=== PATIENT | male | born 1960 | race Caucasian/White ===

== ENCOUNTER → 2024-04-23 | Outpatient (CLI) | payer OTHER ==
--- NOTE | 2024-04-25 17:33 | US ---
EXAMINATION TYPE: US liver DATE OF EXAM: 04/23/2024 COMPARISON: NONE CLINICAL INDICATION: Male, 64 years old with history of K74.60 CIRRHOSIS OF LIVER; Cirrhosis TECHNIQUE: Multiple sonographic images of the right upper quadrant are obtained. 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 Lobulated heterogenous appearance of the liver with surf eriberto nodularity. This appearance limits evaluation for small hepatic masses. No gross evidence of mass . Cholelithiasis is demonstrated. No surrounding fluid or wall thickening. Negative sonographic Darius y's sign. Common bile duct is within normal limits. Right kidney demonstrate no hydronephrosis, nephr olithiasis, or solid mass. Trace perihepatic ascites demonstrated. IMPRESSION: 1. Hepatic cirrhosis with trace perihepatic ascites. 2. Cholelithiasis without ultrasound evidence for acute cause ascites.
== END | disposition home or self-care (01) ==
LOC: RADUSWWP 07:14
PROVIDERS: ATTEND Internal Medicine Gastroenterology
DX: K74.60 Unspecified cirrhosis of liver (principal); K80.20 Calculus of gallbladder without cholecystitis without obstruction; R18.8 Other ascites
CPT/HCPCS: 76705

== ENCOUNTER → 2024-04-27 | Day surgery (SDC) | payer OTHER ==
[~2024-04-27] MED LIST: PROPOFOL 10 MG/ML 20 ML VIAL IV ONE
[2024-04-27] MEDS: IV FLUID CONTINUATION 1,000 ML IV ONE (11:24)
[2024-04-27 11:26] VITALS: TEMP 98.9
[2024-04-27 11:34] LABS: Glucose,Whole Blood 123 mg/dL (70-110)
[2024-04-27] MEDS: LACTATED RINGERS 1,000 ML IV SCH (11:38)
--- NOTE | 2024-04-27 12:27 | P.PCN ---
Date of Procedure: 04/27/24 Procedure(s) Performed: BRIEF HISTORY: Patient is a 64-year-old, pleasant, white female scheduled for an upper endoscopy as a part of evaluation of history of liver cirrhosis and screening for esophageal varices. PROCEDURE PERFORMED: Esophagogastroduodenoscopy biopsy. PREOPERATIVE DIAGNOSIS: History of liver cirrhosis/screening for esophageal varices. IV sedation per anesthesia. PROCEDURE: After informed consent was obtained, the patient was brought into the endoscopy unit. IV sedation was administered by Anesthesia under continuous monitoring. Initially the Olympus GIF-140 video endoscope was inserted into the mouth. Esophagus intubated without any difficulty. It was gradually advanced into the stomach and duodenum and carefully examined. The bulb and the second part of the duodenum appeared normal. The scope at this time was withdrawn to the stomach, adequately insufflated with air, and upon careful examination, mucosa of the antrum, body had gastritis and biopsies were done from this area. Mucosa in the, cardia and the fundus appeared normal. The scope was then withdrawn into the esophagus. Gastric varices identified. The GE junction was located at 39 cm from the incisors. There may large mid and distal esophageal varices seen but no grade B remarks identified. The rest of the esophagus appeared normal. There were no erosions or ulcerations seen and the patient tolerated the procedure well. IMPRESSION: 1. Large mid and distal esophageal varices. 2. No gastric varices 3. Mild antral gastritis and mild portal hypertensive gastropathy. RECOMMENDATIONS: The findings of this examination were discussed with the patient as well as his family. He was advised to follow with the biopsy results. He will be started on propranolol 10 mg 3 times daily as a part of primary prevention of recent bleeding. Follow-up in the office in 2 weeks
[2024-04-27 12:48] VITALS: BP 136/74; PULSE 66; RESP 16
[2024-04-27 12:53] LABS: Glucose,Whole Blood 104 mg/dL (70-110)
== END ==
LOC: ORWHC2ENDO 10:05
PROVIDERS: ATTEND Internal Medicine Gastroenterology
DX: K29.50 Unspecified chronic gastritis without bleeding (principal); K74.60 Unspecified cirrhosis of liver; K31.89 Other diseases of stomach and duodenum; K76.6 Portal hypertension; I85.10 Secondary esophageal varices without bleeding; I10 Essential (primary) hypertension; E11.9 Type 2 diabetes mellitus without complications; E07.9 Disorder of thyroid, unspecified; F17.200 Nicotine dependence, unspecified, uncomplicated; Z79.890 Hormone replacement therapy; Z79.899 Other long term (current) drug therapy
CPT/HCPCS: 88305; 43239; J2704

== ENCOUNTER → 2024-08-13 | Outpatient (CLI) | payer OTHER ==
--- NOTE | 2024-08-13 10:12 | CT ---
EXAMINATION TYPE: CT left knee - [facility] Protocol CT DLP: 615 mGycm, Automated exposure control for dose reduction was used. DATE OF EXAM: 08/13/2024 9:02 AM COMPARISON: None CLINICAL INDICATION: Male, 64 years old with history of M17.12 OSTEOARTHRITIS LEFT KNEE; [facility], Osteoar thritis LT knee, [facility] protocol. TECHNIQUE: Axial images were obtained of the CT left knee - [facility] Protocol, Additional coronal and sag ittal reformatted images and soft tissue and bone window were obtained for review. . Contrast used: mL of , (None if empty) Oral contrast used: (None if empty) FINDINGS: TThe visualized portion of the hips demonstrate mild osteoarthrosis changes with osteophyte formation of the acetabulum. No acute intrapelvic process. The bony structures of the pelvis are int act. The visualized knee demonstrates osteophyte formation of the tibial plateau, the patella and femoral condyles. There is joint space narrowing and subchondral sclerosis and subchondral cystic change. Fi ndings worse in the medial joint compartment. No evidence of fracture. The right knee also demonstrat es moderate degeneration changes of the medial knee visualized. Visualized ankle demonstrates multifocal osteoarthrosis changes with osteophyte formation and mild red int space narrowing. No evidence of fractures. Atherosclerosis of the arterial vasculature. Trace free fluid in the pelvis. IMPRESSION: 1. End-stage osteoarthrosis changes of the knee. 2. Trace free fluid in the pelvis of unknown etiology. [facility], , 08/13/2024 10:10 AM
== END | disposition home or self-care (01) ==
LOC: RADCTMAIN 07:32
PROVIDERS: ATTEND Orthopaedic Surgery
DX: M17.12 Unilateral primary osteoarthritis, left knee (principal)

== ENCOUNTER → 2024-08-13 | Outpatient (CLI) | payer OTHER ==
[2024-08-17 06:29] LABS: Anabasine Urine <2.0 ng/mL (<2.0)
== END | disposition home or self-care (01) ==
LOC: LABWHC1 09:00
PROVIDERS: ATTEND Orthopaedic Surgery
DX: M17.12 Unilateral primary osteoarthritis, left knee (principal); M25.562 Pain in left knee
CPT/HCPCS: 80323

== ENCOUNTER → 2024-08-13 | Outpatient (CLI) | payer OTHER ==
--- NOTE | 2024-08-13 19:35 | US ---
EXAMINATION TYPE: US liver DATE OF EXAM: 08/13/2024 COMPARISON: US 2023 CLINICAL INDICATION: Male, 64 years old with history of K74.60 UNSPECIFIED CIRRHOSIS OF LIVER; TECHNIQUE: Grayscale and color Doppler imaging of the right upper quadrant was performed. FINDINGS: EXAM MEASUREMENTS: Liver Length: 14.8 cm Gallbladder Wall: 0.2 cm. CBD: 0.4 cm Right Kidney: 12.1 x 5.7 x 7.2 cm Pancreas: visualized portions wnl, limited by overlying midline bowel gas Liver: small, lobulated contour, heterogeneous Gallbladder: multiple mobile stones Evidence for sonographic Almanza's sign: no CBD: wnl Right Kidney: wnl RUQ small amount of ascites IMPRESSION: 1. Minimal free fluid right upper quadrant. 2. Cholelithiasis. Appears to be some borderline thickening of the gallbladder wall. [facility], Workstation: [id number], 08/13/2024 7:33 PM
== END | disposition home or self-care (01) ==
LOC: RADUSWWP 08:21
PROVIDERS: ATTEND Internal Medicine Gastroenterology
DX: K74.60 Unspecified cirrhosis of liver
CPT/HCPCS: 76705

== ENCOUNTER → 2024-09-01 | Outpatient (CLI) | payer OTHER ==
[2024-09-01 13:32] LABS: HCT 37.5 % (39.0-53.0); HGB 12.8 gm/dL (13.0-17.5); INR 1.1 (<1.2); MCH 35.4 pg (25.0-35.0); MCHC 34.1 g/dL (31.0-37.0); MCV 103.8 fL (80.0-100.0); Macrocytosis Slight; Mean Platelet Volume 9.2; Partial Thromboplastin Time 24.4 sec (22.0-30.0); RBC 3.61 m/uL (4.30-5.90); RDW 14.3 % (11.5-15.5); WBC 3.5 k/uL (3.8-10.6)
[2024-09-01 13:43] LABS: ALT 36 U/L (4-49); AST 57 U/L (17-59); African American GFR (CKD) >90 (>60 ml/min/1.73 sqM); Albumin 2.9 g/dL (3.5-5.0); Alkaline Phosphatase 334 U/L (38-126); Anion Gap 3 mmol/L; Blood Urea Nitrogen 10 mg/dL (9-20); Calcium 8.5 mg/dL (8.4-10.2); Carbon Dioxide 25 mmol/L (22-30); Chloride 110 mmol/L (98-107); Glucose 306 mg/dL (74-99); Non-African American GFR(CKD) >90 (>60 ml/min/1.73 sqM); Potassium 4.7 mmol/L (3.5-5.1); Sodium 138 mmol/L (137-145); Total Bilirubin 2.1 mg/dL (0.2-1.3); Total Protein 6.4 g/dL (6.3-8.2)
[2024-09-01 15:08] LABS: Platelet Count 89 k/uL (150-450)
[2024-09-04 15:55] LABS: Anabasine Urine 4.3 ng/mL (<2.0)
== END | disposition home or self-care (01) ==
LOC: PAT 12:19
PROVIDERS: ATTEND Orthopaedic Surgery
DX: Z00.00 Encounter for general adult medical examination without abnormal findings
CPT/HCPCS: 80053; 80323; 83036; 85027; 85610; 85730; 87070

== ENCOUNTER → 2024-10-22 | Outpatient (CLI) | payer OTHER ==
[2024-10-22 11:02] LABS: Partial Thromboplastin Time 22.7 sec (22.0-30.0); Prothrombin Time 11.3 sec (10.0-12.5)
[2024-10-22 15:12] LABS: ALT 50 U/L (10-49); AST 75 U/L (14-35); Albumin/Globulin Ratio 0.86 Ratio (1.60-3.17); Alkaline Phosphatase 324 U/L (41-126); Blood Urea Nitrogen 10.1 mg/dL (9.0-27.0); Calcium 8.6 mg/dL (8.7-10.3); Carbon Dioxide 27.5 mmol/L (21.6-31.8); Chloride 105 mmol/L (96-109); Globulin 3.5 g/dL (1.6-3.3); Glucose 149 mg/dL (70-110); Potassium 4.5 mmol/L (3.5-5.5); Sodium 140 mmol/L (135-145); Total Bilirubin 1.3 mg/dL (0.3-1.2); Total Protein 6.5 g/dL (6.2-8.2)
[2024-10-22 17:09] LABS: HCT 39.5 % (39.6-50.0); HGB 13.6 g/dL (13.0-17.0); MCH 34.3 pg (27.0-32.0); MCHC 34.4 g/dL (32.0-37.0); MCV 99.5 FL (80.0-97.0); Mean Platelet Volume 11.8 FL (9.5-12.2); NRBC Per 100 WBC 0 X 10*3/uL (0.00-0.01); Platelet Count 82 X 10*3/uL (140-440); RBC 3.97 X 10*6/uL (4.40-5.60); RDW 13.4 % (11.5-14.5); WBC 4.03 X 10*3/uL (4.50-10.00)
== END | disposition home or self-care (01) ==
LOC: LABPAT 09:28
PROVIDERS: ATTEND Orthopaedic Surgery
DX: Z01.812 Encounter for preprocedural laboratory examination (principal); Z22.322 Carrier or suspected carrier of Methicillin resistant Staphylococcus aureus
CPT/HCPCS: 80053; 83036; 85027; 85610; 85730; 87070

== ENCOUNTER → 2024-11-08 | Day surgery (SDC) | payer OTHER | LOC: OR 10:14 | PROVIDERS: ATTEND Orthopaedic Surgery | DX: Z53.9 Procedure and treatment not carried out, unspecified reason (principal) ==

== ENCOUNTER → 2025-01-11 | Outpatient (CLI) | payer OTHER ==
--- NOTE | 2025-01-11 12:54 | CT ---
EXAMINATION TYPE: CT left knee - [facility] Protocol DATE OF EXAM: 01/11/2025 12:44 PM COMPARISON: 08/13/2024. CLINICAL INDICATION: Male, 64 years old with history of M17.12 OSTEOARTHRITIS KNEE; PHH, left knee ma ko protocol, pain, TECHNIQUE: Axial images were obtained of the bilateral hips, knee and bilateral ankles: CT left knee - [facility] Protocol, Additional coronal and sagittal reformatted images and soft tissue and bone window were obtained for review of the bilateral hips, knee and bilateral ankles. Contrast used: mL of , (None if empty) Oral contrast used: (None if empty) CT DLP: 410 mGycm, Automated exposure control for dose reduction was used. FINDINGS: The visualized portion of the hips demonstrate mild osteoarthrosis changes with osteophyte formation of the acetabulum. No acute intrapelvic process. The bony structures of the pelvis are intact. The visualized knee demonstrates osteophyte formation of the tibial plateau, the patella and femoral condyles. There is complete loss of joint space subchondral sclerosis, subchondral cystic change and early deformity to the osseous structures. And subchondral sclerosis. No evidence of fracture. The visualized ankles demonstrates multifocal osteoarthrosis changes with osteophyte formation and mi ld joint space narrowing. No evidence of fractures. Other: Small amount of ascites. Sequential wall thickening of the urinary bladder. gross desiccation in the prostate gland. Scattered colonic diverticula. Severe atherosclerosis of the arterial vascular . IMPRESSION: Redemonstration of End-stage/severe osteoarthrosis changes of the knee. [facility], , 01/11/2025 12:51 PM
== END | disposition home or self-care (01) ==
LOC: RADCTMAIN 10:35
PROVIDERS: ATTEND Orthopaedic Surgery
DX: M17.12 Unilateral primary osteoarthritis, left knee (principal)

== ENCOUNTER → 2025-01-19 | Outpatient (CLI) | payer OTHER ==
[2025-01-19 12:32] LABS: INR 1.1 (<1.2); Prothrombin Time 11.7 sec (10.0-12.5)
[2025-01-19 15:00] LABS: ALT 46 U/L (10-49); AST 74 U/L (14-35); Albumin/Globulin Ratio 0.71 Ratio (1.60-3.17); Alkaline Phosphatase 356 U/L (41-126); BUN/Creat Ratio 20.83 Ratio (12.00-20.00); Blood Urea Nitrogen 12.5 mg/dL (9.0-27.0); Calcium 8.6 mg/dL (8.7-10.3); Carbon Dioxide 25.6 mmol/L (21.6-31.8); Chloride 103 mmol/L (96-109); Globulin 4.2 g/dL (1.6-3.3); Glucose 494 mg/dL (70-110); Potassium 3.8 mmol/L (3.5-5.5); Sodium 136 mmol/L (135-145); Total Bilirubin 1.1 mg/dL (0.3-1.2); Total Protein 7.2 g/dL (6.2-8.2)
[2025-01-19 15:19] LABS: HCT 37.8 % (39.6-50.0); HGB 13.1 g/dL (13.0-17.0); MCH 33.8 pg (27.0-32.0); MCHC 34.7 g/dL (32.0-37.0); MCV 97.4 FL (80.0-97.0); Mean Platelet Volume 11.8 FL (9.5-12.2); NRBC Per 100 WBC 0 X 10*3/uL (0.00-0.01); Platelet Count 96 X 10*3/uL (140-440); RBC 3.88 X 10*6/uL (4.40-5.60); RDW 12.6 % (11.5-14.5); WBC 3.82 X 10*3/uL (4.50-10.00)
== END | disposition home or self-care (01) ==
LOC: LABPAT 11:11
PROVIDERS: ATTEND Orthopaedic Surgery
DX: Z01.818 Encounter for other preprocedural examination (principal); Z22.322 Carrier or suspected carrier of Methicillin resistant Staphylococcus aureus; M17.12 Unilateral primary osteoarthritis, left knee; E11.9 Type 2 diabetes mellitus without complications
CPT/HCPCS: 80053; 83036; 85027; 85610; 85730; 87070; 93005

== ENCOUNTER 2025-01-28 10:11 | Emergency (ER) | payer OTHER ==
--- NOTE | 2025-01-28 10:48 | ED ---
Extremity Problem HPI - General Source: patient, RN notes reviewed Mode of arrival: wheelchair Limitations: no limitations <Ame Tatum - Last Filed: 01/28/25 10:47> - General Source: patient, RN notes reviewed Mode of arrival: wheelchair Limitations: no limitations <Nivia Colon - Last Filed: 01/29/25 14:59> - General Chief complaint: Extremity Problem,Nontraumatic Stated complaint: L knee pain Time Seen by Provider: 01/28/25 10:30 - History of Present Illness Initial comments: Quick [id number] male presenting with a left knee pain. Patient was scheduled for a total knee replacement this month however this has been deferred as patient's A1c level is elevated. Patient is presenting for pain management. (Ame Tatum) 65-year-old male presented to the ER for evaluation of left knee pain. Patient states this has been a chronic issue and he was scheduled for a left total knee arthroplasty with Dr. Zepeda this month. Surgery was postponed given elevated A1c level, patient reports it was 9. Patient states he is following up with PCP for diabetes management and has medication adjustments since surgery deferment. Patient reports over the past couple days he has had an increase in pain to his left knee which has been "giving out on him". He has not taken anything [id number] for his pain at this time. He denies any new injuries or traumas. No paresthesias to left lower extremity. Patient has no other complaints at this time. (Nivia Colon) - Related Data Home Medications Medication Instructions Recorded Confirmed Insulin Glargine (Lantus) [Lantus 40 unit SQ BID 04/22/24 04/27/24 Vial] Levothyroxine Sodium [Synthroid] 100 mcg PO DAILY 04/22/24 04/27/24 glipiZIDE [glipiZIDE ER] 2.5 mg PO DAILY 04/22/24 04/27/24 lisinopriL [Zestril] 5 mg PO DAILY 04/22/24 04/27/24 Previous Rx's Medication Instructions Recorded Ibuprofen [Motrin] 800 mg PO Q6HR #30 tab 01/28/25 Allergies Allergy/AdvReac Type Severity Reaction Status Date / Time codeine AdvReac Nausea Verified 01/28/25 10:15 metals AdvReac Rash/Hives Uncoded 01/28/25 10:15 Review of Systems ROS Other: All systems not noted in ROS Statement are negative. <Ame Tatum - Last Filed: 01/28/25 10:47> ROS Other: All systems not noted in ROS Statement are negative. <Nivia Colon - Last Filed: 01/29/25 14:59> ROS Statement: Those systems with pertinent positive or pertinent negative responses have been documented in the HPI. Past Medical History Past Medical History: Diabetes Mellitus, GERD/Reflux, Liver Disease, Osteoarthritis (OA), Thyroid Disorder Additional Past Medical History / Comment(s): hx. Hep. C-received treatment, hx. ulcers History of Any Multi-Drug Resistant Organisms: None Reported Past Surgical History: Orthopedic Surgery Additional Past Surgical History / Comment(s): arthroscopy left knee Past Anesthesia/Blood Transfusion Reactions: No Reported Reaction Past Psychological History: No Psychological Hx Reported Smoking Status: Current every day smoker Past Alcohol Use History: None Reported Past Drug Use History: None Reported <Ame Tatum - Last Filed: 01/28/25 10:47> General Exam Limitations: no limitations <Ame Tatum - Last Filed: 01/28/25 10:47> - General Exam Comments Initial Comments: Visual Physical Exam Vital signs reviewed General: Well-appearing, nontoxic, no acute distress. Head: Normocephalic, atraumatic Eyes: PERRLA, EOMI ENT: Airway patent Chest: Nonlabored breathing Skin: No visual rash, normal skin tone Neuro: Alert and oriented 3 Musculoskeletal: No gross abnormalities (Ame Tatum) Course Vital Signs 01/28/25 01/28/25 10:13 13:42 Temperature 98 F Pulse Rate 67 78 Respiratory 18 20 Rate Blood Pressure 106/59 190/87 O2 Sat by Pulse 99 98 Oximetry Medical Decision Making <Ame Tatum - Last Filed: 01/28/25 10:47> <Nivia Colon - Last Filed: 01/29/25 14:59> - Medical Decision Making I completed the quick note portion of this chart signed Ame Tatum PA-C (Ame Tatum) Was pt. sent in by a medical professional or institution ([facility], [facility], urgent care, hospital, or skilled nursing...) When possible be specific @ -No Did you speak to anyone other than the patient for history (EMS, parent, family, police, friend...)? What history was obtained from this source @ -No Did you review nursing and triage notes (agree or disagree)? Why? @ -I reviewed and agree with nursing and triage notes Were old charts reviewed (outside hosp., previous admission, EMS record, old EKG, old radiological studies, urgent care reports/EKG's, skilled nursing records)? Report findings @ -No old charts were reviewed Differential Diagnosis (chest pain, altered mental status, abdominal pain women, abdominal pain men, vaginal bleeding, weakness, fever, dyspnea, syncope, headache, dizziness, GI bleed, back pain, seizure, CVA, palpatations, mental health, musculoskeletal)? @ -Differential Musculoskeletal: Muscular strain, contusion, ligament sprain, fracture, arthritis, septic arthritis, bursitis, cellulitis, muscle spasm, nerve compression, DVT, arterial occlusion, herpes zoster, electrolyte abnormality, tumor.... This is not meant to be in all inclusive list EKG interpreted by me (3pts min.). @ -None done X-rays interpreted by me (1pt min.). @ -None done CT interpreted by me (1pt min.). @ -None done U/S interpreted by me (1pt. min.). @ -None done What testing was considered but not performed or refused? (CT, X-rays, U/S, labs)? Why? @ -Imaging considered but deferred at this time as patient had recent CT scan on 01-12-2024 showing severe osteoarthritis. Patient denied any new injuries or traumas. Patient agreeable. What meds were considered but not given or refused? Why? @ -None Did you discuss the management of the patient with other professionals (professionals i.e. Dr., PA, [facility], lab, RT, psych nurse, social services aide, demand generator manager, teacher, water resources technical officer, block and case maker)? Give summary @ -No Was smoking cessation discussed for >3mins.? @ -No Was critical care preformed (if so, how long)? @ -No Were there social determinants of health that impacted care today? How? (Homelessness, low income, unemployed, alcoholism, drug addiction, tr ansportation, low edu. Level, literacy, decrease access to med. care, detention, rehab)? @ -No Was there de-escalation of care discussed even if they declined (Discuss DNR or withdrawal of care, Hospice)? DNR status @ -No What co-morbidities impacted this encounter? (DM, HTN, Smoking, COPD, CAD, Cancer, CVA, ARF, Chemo, Hep., AIDS, mental health diagnosis, sleep apnea, morbid obesity)? @ -None Was patient admitted / discharged? Hospital course, mention meds given and route, prescriptions, significant lab abnormalities, going to OR and other pertinent info. @ -Discharge. 65-year-old male presented the ER for evaluation of left knee pain. Upon rooming, history and physical exam completed. Vitals with acceptable limits. Patient is neurovascularly intact. Patient has limited flexion of left knee given pain.. There is focal tenderness to medial joint line. Imaging deferred at this time as patient denying any new injuries and had recent CT scan showing severe osteoarthritis. Patient given pain control with ibuprofen and Tylenol, with improvement. Upon reevaluation, patient sleeping in exam room no signs of acute distress. Results discussed with patient, all questions answered. I advised close follow-up with orthopedics. Return parameters discussed. I advised outpatient ibuprofen and Tylenol. Patient discharged stable condition. Patient verbally expressed understanding agree with care plan. Case discussed with ED attending, Dr. Thornton. Undiagnosed new problem with uncertain prognosis? @ -No Drug Therapy requiring intensive monitoring for toxicity (Heparin, Nitro, In sulin, Cardizem)? @ -No Were any procedures done? @ -No Diagnosis/symptom? @ -Knee pain Acute, or Chronic, or Acute on Chronic? @ -Chronic Uncomplicated (without systemic symptoms) or Complicated (systemic symptoms)? @ -Uncomplicated Side effects of treatment? @ -No Exacerbation, Progression, or Severe Exacerbation? @ -No Poses a threat to life or bodily function? How? (Chest pain, [place], [place], pneumonia, PE, COPD, DKA, ARF, appy, cholecystitis, CVA, Diverticulitis, Homicidal, Suicidal, threat to staff... and all critical care pts) @ -No (Nivia Colon) Disposition <Ame Tatum - Last Filed: 01/28/25 10:47> Is patient prescribed a controlled substance at d/c from ED?: No Time of Disposition: 12:44 <JoelruiznikolaiNivia - Last Filed: 01/29/25 14:59> Clinical Impression: Knee pain, chronic Disposition: HOME SELF-CARE Condition: Stable Instructions (If sedation given, give patient instructions): Knee Pain (ED) Additional Instructions: Follow-up with orthopedics. You may take [id number] ibuprofen and Tylenol for pain control. Return to the ER for any new or worsening concerns. Prescriptions: Ibuprofen [Motrin] 800 mg PO Q6HR #30 tab Referrals: John Castelan MD [Primary Care Provider] - 1-2 days Jero Zepeda MD [Medical Doctor] - 1-2 days
[2025-01-28 11:08] VITALS: TEMP 98
[2025-01-28] MEDS: IBUPROFEN 800 MG TAB PO STA (11:51)
[2025-01-28] MEDS: ACETAMINOPHEN TAB 325 MG TAB PO STA (13:39)
[2025-01-28 13:44] VITALS: BP 190/87; PULSE 78; RESP 20
== END 2025-01-28 13:45 | disposition home or self-care (01) ==
LOC: EC 10:11
DX: G89.29 Other chronic pain (principal); M25.562 Pain in left knee; F17.200 Nicotine dependence, unspecified, uncomplicated; Z88.5 Allergy status to narcotic agent; Z88.8 Allergy status to other drugs, medicaments and biological substances
CPT/HCPCS: 99283

== ENCOUNTER 2025-02-22 17:53 | Inpatient (IN) | payer OTHER ==
[2025-02-22 18:48] LABS: Glucose,Whole Blood 367 mg/dL (70-110)
[2025-02-22 19:38] LABS: Basophils # (A) 0.03 10*3/uL (0.00-0.10); Basophils % (A) 0.7 %; Eosinophils # (A) 0.05 10*3/uL (0.04-0.35); Eosinophils % (A) 1.2 %; HCT 33.5 % (39.6-50.0); HGB 11.9 g/dL (13.0-17.0); Lymphocytes # (A) 0.62 10*3/uL (0.90-5.00); Lymphocytes % (A) 14.3 %; MCHC 35.5 g/dL (32.0-37.0); MCV 98.5 fL (80.0-97.0); Mean Platelet Volume 10.9 fL (9.5-12.2); Monocytes # (A) 0.47 10*3/uL (0.20-1.00); Monocytes % (A) 10.8 %; Neutrophils # (A) 3.15 10*3/uL (1.80-7.70); Neutrophils % (A) 72.5 %; Platelet Count 100 10*3/uL (140-440); RDW 13.9 % (11.5-14.5); WBC 4.34 10*3/uL (4.50-10.00)
[2025-02-22 19:55] LABS: INR 0.9 (<1.2); Prothrombin Time 10.5 sec (10.0-12.5)
[2025-02-22 20:01] LABS: ALT 49 U/L (4-49); African American GFR (CKD) >90 (>60 ml/min/1.73 sqM); Albumin 3.1 g/dL (3.5-5.0); Anion Gap 9 mmol/L; Blood Urea Nitrogen 20 mg/dL (9-20); Calcium 8.1 mg/dL (8.4-10.2); Carbon Dioxide 20 mmol/L (22-30); Chloride 112 mmol/L (98-107); Glucose 396 mg/dL (74-99); Lipase 78 U/L (23-300); Magnesium 1.9 mg/dL (1.6-2.3); Non-African American GFR(CKD) >90 (>60 ml/min/1.73 sqM); Phosphorus 3.8 mg/dL (2.5-4.5); Sodium 141 mmol/L (137-145)
[2025-02-22 20:11] LABS: AST 84 U/L (17-59); Alcohol 183 mg/dL; Alkaline Phosphatase 326 U/L (38-126); Potassium 4.6 mmol/L (3.5-5.1); Total Bilirubin 1.5 mg/dL (0.2-1.3)
[2025-02-22] MEDS: SODIUM CHLORIDE 0.9% 1,000 ML IV STA (20:14)
[2025-02-22] MEDS: FOLIC ACID 1 MG TAB PO STA (20:19)
[2025-02-22] MEDS: MULTIVITAMINS, THERA 1 EACH TAB PO STA (20:19)
[2025-02-22] MEDS: THIAMINE 100 MG/ML 2 ML VIAL IM STA (20:19)
--- NOTE | 2025-02-22 21:17 | CT ---
EXAMINATION TYPE: CT brain cspine wo con DATE OF EXAM: 02/22/2025 9:06 PM COMPARISON: None available. CLINICAL INDICATION: Male, 65 years old with history of fall, intoxicated, hit right side of head; Fa ll, ETOH, hit right side of head. TECHNIQUE: Brain: Multiple axial CT images of the brain were obtained without IV contrast. Cspine: Axial CT images from the skull base to the inferior aspect of T2 we obtained without intraven ous contrast. Coronal and sagittal reformatted images were also reviewed. . CT DLP: 1401.9 mGycm, Automated exposure control for dose reduction was used. FINDINGS: Brain: Extra-axial spaces: No abnormal extra-axial fluid collections. Ventricular system: Dilatation in proportion to cerebral atrophy. Cerebral parenchyma: No acute intraparenchymal hemorrhage or mass effect. The card-white junction is well differentiated. Scattered hypoattenuating areas are seen within the white matter. Cerebellum: Unremarkable. Mass effect: No evidence of midline shift. Intracranial vasculature: unremarkable Soft tissues: Normal. Calvarium/osseous structures: No depressed skull fracture. Paranasal sinuses and mastoid air cells: There is complete opacification of the left maxillary sinus with air fluid levels. Scattered ethmoid air cell because of thickening also noted. Visualized orbits: Orbital contents are intact. Cervical spine: Fracture: None. Osseous structures: Multilevel anterior osteophyte formation and intervertebral disc space loss. Ossi fication of the posterior longitudinal ligament. Vertebral alignment: Within normal limits. Spinal canal/Neural Foramina: Facet arthropathy and uncovertebral hypertrophy in combination with pos terior disc osteophyte complexes cause varying degrees of neural foraminal and spinal canal narrowing . Evaluation of the spinal canal limited due to streak artifact. Neck soft tissues: Prevertebral soft tissues are within normal limits. Other: The airway is patent. The lung apices are clear. IMPRESSION: 1. No acute intracranial process. 2. No acute fracture or traumatic subluxation of the cervical spine. 3. Complete opacification of the left maxillary sinus with air-fluid level suggesting component of a cute etiology. [facility], , 02/22/2025 9:15 PM
[2025-02-22 21:18] LABS: VBG PH 7.35 (7.31-7.41)
[2025-02-22] MEDS: SODIUM CHLORIDE 0.9% 1,000 ML IV ONE (21:40)
--- NOTE | 2025-02-22 23:02 | ED ---
General Adult HPI - General Source: EMS, RN notes reviewed, old records reviewed Mode of arrival: EMS Limitations: altered mental status <Marin Bess - Last Filed: 02/23/25 03:19> - General Source: EMS Mode of arrival: EMS Limitations: altered mental status <Luis AJuana - Last Filed: 02/23/25 12:38> - General Chief complaint: Alcohol Stated complaint: ETOH Time Seen by Provider: 02/22/25 18:00 - History of Present Illness Initial comments: This is a 65 male for alcohol intoxication, patient initially came in hypothermic found outside sleeping public intoxication, patient here in the ER appears persistently confused (Marin Bess) Patient is a 65-year-old gentleman with past medical history of diabetes, presenting today for alcohol intoxication. Patient was brought in by police after being found outside of a local gas station. He had reportedly hit the right side of his head. Unsure LOC. Patient endorses drinking alcohol today stating he took drink "2 beers, the first 1 and the last 1". Less drink was earlier this afternoon. Does drink alcohol daily. Currently endorses right sided neck pain, denies changes in vision, slurred speech, chest pain, difficulty breathing nausea, vomiting, abdominal pain. Was also noted to be hyperglycemic. Also endorses marijuana use today. (Juana Taylor) - Related Data Home Medications Medication Instructions Recorded Confirmed Insulin Glargine (Lantus) [Lantus 38 unit SQ HS 04/22/24 02/23/25 Vial] Levothyroxine Sodium [Synthroid] 100 mcg PO DAILY 04/22/24 02/23/25 Aspirin EC [Ecotrin Low Dose] 81 mg PO DAILY 02/23/25 02/23/25 Atorvastatin [Lipitor] 20 mg PO HS 02/23/25 02/23/25 Furosemide [Lasix] 40 mg PO DAILY 02/23/25 02/23/25 Gabapentin [Neurontin] 300 mg PO TID 02/23/25 02/23/25 amLODIPine [Norvasc] 10 mg PO DAILY 02/23/25 02/23/25 lisinopriL [Zestril] 10 mg PO DAILY 02/23/25 02/23/25 Previous Rx's Medication Instructions Recorded Thiamine [Vitamin B-1] 100 mg PO DAILY #30 tab 02/23/25 Allergies Allergy/AdvReac Type Severity Reaction Status Date / Time codeine AdvReac Nausea Verified 02/23/25 08:55 metals Allergy Rash/Hives Uncoded 02/23/25 08:55 Review of Systems ROS Other: All systems not noted in ROS Statement are negative. <Marin Bess - Last Filed: 02/23/25 03:19> ROS Other: All systems not noted in ROS Statement are negative. <Juana Taylor - Last Filed: 02/23/25 12:38> ROS Statement: Those systems with pertinent positive or pertinent negative responses have been documented in the HPI. Past Medical History Past Medical History: Diabetes Mellitus, GERD/Reflux, Liver Disease, Osteoarthritis (OA), Thyroid Disorder Additional Past Medical History / Comment(s): hx. Hep. C-received treatment, hx. ulcers History of Any Multi-Drug Resistant Organisms: None Reported Past Surgical History: Orthopedic Surgery Additional Past Surgical History / Comment(s): arthroscopy left knee Past Anesthesia/Blood Transfusion Reactions: No Reported Reaction Past Psychological History: Anxiety, Depression, PTSD Smoking Status: Current every day smoker Past Alcohol Use History: Daily Past Drug Use History: None Reported <Juana Taylor - Last Filed: 02/23/25 12:38> General Exam Limitations: altered mental status General appearance: appears intoxicated Head exam: Present: atraumatic, normocephalic, normal inspection Eye exam: Present: normal appearance, PERRL, EOMI. Absent: scleral icterus, conjunctival injection, periorbital swelling ENT exam: Present: normal exam, mucous membranes moist Neck exam: Present: normal inspection. Absent: tenderness, meningismus, lymphadenopathy Respiratory exam: Present: normal lung sounds bilaterally. Absent: respiratory distress, wheezes, rales, rhonchi, stridor Cardiovascular Exam: Present: regular rate, normal rhythm, normal heart sounds. Absent: systolic murmur, diastolic murmur, rubs, gallop, clicks GI/Abdominal exam: Present: soft, normal bowel sounds. Absent: distended, tenderness, guarding, rebound, rigid Extremities exam: Present: normal inspection, full ROM, normal capillary refill. Absent: tenderness, pedal edema, joint swelling, calf tenderness Back exam: Present: normal inspection Neurological exam: Present: alert, oriented X3, CN II-XII intact Psychiatric exam: Present: normal affect, normal mood Skin exam: Present: warm, dry, intact, normal color. Absent: rash <Marin Bess - Last Filed: 02/23/25 03:19> Limitations: altered mental status <Juana Taylor - Last Filed: 02/23/25 12:38> - General Exam Comments Initial Comments: PE: CONSTITUTIONAL: No apparent distress, well appearing, disheleveled SKIN: Warm, dry, no jaundice, hives or petechiae EYES: Pupils are equally round, extraocular movements intact without nystagmus, clear conjunctiva, non-icteric sclera HENT: Normocephalic, small contusion to the right occiput, moist mucus membranes, oropharynx clear without exudates NECK: , Full range of motion, normal appearance, no midline spinal tenderness to palpation PULMONARY: Clear to auscultation without wheezes, rhonchi, or rales, normal excursion, no accessory muscle use and no stridor CARDIOVASCULAR: Regular rate, rhythm, normal S1 and S2. No appreciated murmurs, rubs or gallops. Strong radial pulses with intact distal perfusion. No lower extremity edema GASTROINTESTINAL: Soft, active bowel sounds throughout, non-tender, non-diste nded, no palpable masses, no rebound or guarding. No hepatosplenomegaly MUSCULOSKELETAL: Extremities have no gross deformity, no edema, redness, or swelling. No calf swelling NEUROLOGIC:_a/o x 3, GCS 15, does appear intoxicated with somewhat slurred speech, otherwise no focal neurologic deficits. Moves all extremities x 4 without motor or sensory deficit PSYCHIATRIC:, reasoning is somewhat tangential and circular, otherwise pleasant and cooperartive (Juana Taylor) Course <Marin Bess - Last Filed: 02/23/25 03:19> Vital Signs 02/22/25 02/22/25 02/22/25 18:01 20:20 20:24 Temperature 97.4 F L 94.0 F L 98.1 F Pulse Rate 73 69 69 Respiratory 18 18 18 Rate Blood Pressure 134/69 128/72 128/72 O2 Sat by Pulse 98 96 95 Oximetry 02/23/25 02:44 Temperature Pulse Rate 85 Respiratory 18 Rate Blood Pressure 117/86 O2 Sat by Pulse 98 Oximetry - Reevaluation(s) Reevaluation #1: 02/23/25 03:21 Records reviewed (Marin Bess) Reevaluation #2: 02/23/25 03:21 Patient having persistently altered mental status despite normal blood alcohol levels (Marin Bess) Reevaluation #3: 02/23/25 03:21 Patient unable to stand conversation but informed of results questions answered (Marin Bess) Reevaluation #4: Differential Altered Mental Status: Hypoglycemia, DKA, hypercapnia, ETOH, overdose, CO poisoning, trauma, myxedema coma, HTN encephalopathy, infection, encephalitis, psychosis, intercranial hemorrhage, hepatic encephalopathy, meningitis, CVA, this is not meant to be an all-inclusive list (Marin Bess) - Consultations Consultation #1: Spoke with Dr. Tang who agrees to admit this patient (Marin Bess) Medical Decision Making - Lab Data Result diagrams: 02/22/25 19:25 02/22/25 19:25 <Marin Bess - Last Filed: 02/23/25 03:19> - Lab Data Result diagrams: 02/22/25 19:25 02/22/25 19:25 <Juana Taylor - Last Filed: 02/23/25 12:38> - Medical Decision Making 65 male to the ER for evaluation patient with significantly elevated ammonia hepatic encephalopathy and patient is impending alcohol withdrawal with signs of alcohol withdrawal here in the ER patient will admit for initial intoxication and significantly persistent altered mental status (Marin Bess) Was pt. sent in by a medical professional or institution (, PA, PROCESS MANAGER, urgent care, hospital, or [place] [facility] facility...) When possible be specific @ -No Did you speak to anyone other than the patient for history (EMS, parent, family, police, friend...)? What history was obtained from this source @ -No Did you review nursing and triage notes (agree or disagree)? Why? @ -I reviewed nursing and triage notes Were old charts reviewed (outside hosp., previous admission, EMS record, old EKG, old radiological studies, urgent care reports/EKG's, [place] [facility] facility records)? Report findings @ -Medical records reviewed Differential Diagnosis (chest pain, altered mental status, abdominal pain women, abdominal pain men, vaginal bleeding, weakness, fever, dyspnea, syncope, headache, dizziness, GI bleed, back pain, seizure, CVA, palpatations, mental health, musculoskeletal)? @Differential diagnosis remains broad however top considerations include alcohol intoxication, blunt traumatic head injury, concussion, drug intoxication, DKA, HHS, electorlyte abnormality, dehydration, this is not an all inclusive list EKG interpreted by me (3pts min.). @ -As above X-rays interpreted by me (1pt min.). @ -None done CT interpreted by me (1pt min.). Personally reviewed CT brain/CSpine, I see no evidence of acute process, no skull or cspine fracture or intracranial hemorrhage, agree with radiologist interpretation U/S interpreted by me (1pt. min.). @ -None done What testing was considered but not performed or refused? (CT, X-rays, U/S, labs)? Why? @ -None What meds were considered but not given or refused? Why? @ -None Did you discuss the management of the patient with other professionals (professionals i.e. , PA, PROCESS MANAGER, lab, RT, psych nurse, social worker psychiatric, special technical operations officer, teacher, credit control officer, geriatric case manager)? Give summary @ -No Was smoking cessation discussed for >3mins.? @ -No Was critical care preformed (if so, how long)? @ -No Were there social determinants of health that impacted care today? How? (Homelessness, low income, unemployed, alcoholism, drug addiction, transporta tion, low edu. Level, literacy, decrease access to med. care, longterm, rehab)? Homelessness Was there de-escalation of care discussed even if they declined (Discuss DNR or withdrawal of care, Hospice)? @ -No What co-morbidities impacted this encounter? (DM, HTN, Smoking, COPD, CAD, Cancer, CVA, ARF, Chemo, Hep., AIDS, mental health diagnosis, sleep apnea, morbid obesity)? Diabetes, Alcoholism Was patient admitted / discharged? Hospital course, mention meds given and route, prescriptions, significant lab abnormalities, going to OR and other pertinent info. @ -Signed out to oncoming physician- Patient here for alcohol intoxication, head injury and noted to hyperglycemic. On arrival patient does appear to intoxicated without focal neurologic deficits. Endorses alcohol use today. Evasive about how much alcohol he has actually had today. Contusion to right occiput. Plan for CT brain, C-spine, basic labs to ensure not in DKA or HHS. IV fluids. Imaging negative for acute process. Blood acetone negative. Alcohol at 7:30 PM 183, patient given 2 L IV fluids, will be sober at 1:30 AM. Signed out to oncoming physician Dr. Bess pending sobriety. Undiagnosed new problem with uncertain prognosis? @ -No Drug Therapy requiring intensive monitoring for toxicity (Heparin, Nitro, Insulin, Cardizem)? @ -No Were any procedures done? @ -No Diagnosis/symptom? alcohol intoxication, hyperglycemia Acute, or Chronic, or Acute on Chronic? @acute Uncomplicated (without systemic symptoms) or Complicated (systemic symptoms)? @complicated (,Juana) - Lab Data Lab Results 02/22/25 02/22/25 02/22/25 Range/Units 18:46 19:25 19:25 WBC 4.34 L (4.50-10.00) 10*3/uL RBC 3.40 L (4.40-5.60) 10*6/uL Hgb 11.9 L (13.0-17.0) g/dL Hct 33.5 L (39.6-50.0) % MCV 98.5 H (80.0-97.0) fL MCH 35.0 H (27.0-32.0) pg MCHC 35.5 (32.0-37.0) g/dL Plt Count 100 L (140-440) 10*3/uL MPV 10.9 (9.5-12.2) fL Immature Gran % (Auto) 0.5 % Neutrophils % 72.5 % Lymphocytes % 14.3 % Monocytes % 10.8 % Eosinophils % 1.2 % Basophils % 0.7 % Immature Gran # 0.02 (0.00-0.04) 10*3/uL Neutrophils # 3.15 (1.80-7.70) 10*3/uL Lymphocytes # 0.62 L (0.90-5.00) 10*3/uL Monocytes # 0.47 (0.20-1.00) 10*3/uL Eosinophils # 0.05 (0.04-0.35) 10*3/uL Basophils # 0.03 (0.00-0.10) 10*3/uL PT 10.5 (10.0-12.5) sec INR 0.9 (<1.2) VBG pH (7.31-7.41) VBG pCO2 (37-51) mmHg VBG HCO3 (24-28) mmol/L Sodium (137-145) mmol/L Potassium (3.5-5.1) mmol/L Chloride (98-107) mmol/L Carbon Dioxide (22-30) mmol/L Anion Gap mmol/L BUN (9-20) mg/dL Creatinine (0.66-1.25) mg/dL Est GFR (CKD-EPI)AfAm (>60 ml/min/1.73 sqM) Est GFR (CKD-EPI)NonAf (>60 ml/min/1.73 sqM) Glucose (74-99) mg/dL POC Glucose (mg/dL) 367 H (70-110) mg/dL POC Glu Deaf And Hard Of Hearing Teacher ID Deepali Monreal Calcium (8.4-10.2) mg/dL Phosphorus (2.5-4.5) mg/dL Magnesium (1.6-2.3) mg/dL Total Bilirubin (0.2-1.3) mg/dL AST (17-59) U/L ALT (4-49) U/L Alkaline Phosphatase (38-126) U/L Ammonia (<30) umol/L Total Protein (6.3-8.2) g/dL Albumin (3.5-5.0) g/dL Lipase (23-300) U/L Urine Color Urine Appearance (Clear) Urine pH (5.0-8.0) Ur Specific [place] (1.001-1.035) Urine Protein (Negative) Urine Glucose (UA) (Negative) Urine Ketones (Negative) Urine Blood (Negative) Urine Nitrite (Negative) Urine Bilirubin (Negative) Urine Urobilinogen (<2.0) mg/dL Ur Leukocyte Esterase (Negative) Urine RBC (0-5) /hpf Urine WBC (0-5) /hpf Ur Squamous Epith Cells (0-4) /hpf Amorphous Sediment (None) /hpf Hyaline Casts (0-2) /lpf Urine Opiates Screen (NotDetected) Ur Oxycodone Screen (NotDetected) Urine Methadone Screen (NotDetected) Ur Barbiturates Screen (NotDetected) U Tricyclic Antidepress (NotDetected) Ur Phencyclidine Scrn (NotDetected) Ur Amphetamines Screen (NotDetected) U Methamphetamines Scrn (NotDetected) U Benzodiazepines Scrn (NotDetected) Urine Cocaine Screen (NotDetected) U Marijuana (THC) Screen (NotDetected) Serum Alcohol mg/dL Acetone, Qual (Negative) 02/22/25 02/22/25 02/23/25 Range/Units 19:25 20:32 00:20 WBC (4.50-10.00) 10*3/uL RBC (4.40-5.60) 10*6/uL Hgb (13.0-17.0) g/dL Hct (39.6-50.0) % MCV (80.0-97.0) fL MCH (27.0-32.0) pg MCHC (32.0-37.0) g/dL Plt Count (140-440) 10*3/uL MPV (9.5-12.2) fL Immature Gran % (Auto) % Neutrophils % % Lymphocytes % % Monocytes % % Eosinophils % % Basophils % % Immature Gran # (0.00-0.04) 10*3/uL Neutrophils # (1.80-7.70) 10*3/uL Lymphocytes # (0.90-5.00) 10*3/uL Monocytes # (0.20-1.00) 10*3/uL Eosinophils # (0.04-0.35) 10*3/uL Basophils # (0.00-0.10) 10*3/uL PT (10.0-12.5) sec INR (<1.2) VBG pH 7.35 (7.31-7.41) VBG pCO2 32 L (37-51) mmHg VBG HCO3 18 L (24-28) mmol/L Sodium 141 (137-145) mmol/L Potassium 4.6 (3.5-5.1) mmol/L Chloride 112 H (98-107) mmol/L Carbon Dioxide 20 L (22-30) mmol/L Anion Gap 9 mmol/L BUN 20 (9-20) mg/dL Creatinine 0.50 L (0.66-1.25) mg/dL Est GFR (CKD-EPI)AfAm >90 (>60 ml/min/1.73 sqM) Est GFR (CKD-EPI)NonAf >90 (>60 ml/min/1.73 sqM) Glucose 396 H (74-99) mg/dL POC Glucose (mg/dL) (70-110) mg/dL POC Glu Deaf And Hard Of Hearing Teacher ID Calcium 8.1 L (8.4-10.2) mg/dL Phosphorus 3.8 (2.5-4.5) mg/dL Magnesium 1.9 (1.6-2.3) mg/dL Total Bilirubin 1.5 H (0.2-1.3) mg/dL AST 84 H (17-59) U/L ALT 49 (4-49) U/L Alkaline Phosphatase 326 H (38-126) U/L Ammonia (<30) umol/L Total Protein 7.0 (6.3-8.2) g/dL Albumin 3.1 L (3.5-5.0) g/dL Lipase 78 (23-300) U/L Urine Color Urine Appearance (Clear) Urine pH (5.0-8.0) Ur Specific [place] (1.001-1.035) Urine Protein (Negative) Urine Glucose (UA) (Negative) Urine Ketones (Negative) Urine Blood (Negative) Urine Nitrite (Negative) Urine Bilirubin (Negative) Urine Urobilinogen (<2.0) mg/dL Ur Leukocyte Esterase (Negative) Urine RBC (0-5) /hpf Urine WBC (0-5) /hpf Ur Squamous Epith Cells (0-4) /hpf Amorphous Sediment (None) /hpf Hyaline Casts (0-2) /lpf Urine Opiates Screen Not Detected (NotDetected) Ur Oxycodone Screen Not Detected (NotDetected) Urine Methadone Screen Not Detected (NotDetected) Ur Barbiturates Screen Not Detected (NotDetected) U Tricyclic Antidepress Not Detected (NotDetected) Ur Phencyclidine Scrn Not Detected (NotDetected) Ur Amphetamines Screen Not Detected (NotDetected) U Methamphetamines Scrn Not Detected (NotDetected) U Benzodiazepines Scrn Not Detected (NotDetected) Urine Cocaine Screen Detected H (NotDetected) U Marijuana (THC) Screen Detected H (NotDetected) Serum Alcohol 183 mg/dL Acetone, Qual Negative (Negative) 02/23/25 02/23/25 Range/Units 00:20 02:53 WBC (4.50-10.00) 10*3/uL RBC (4.40-5.60) 10*6/uL Hgb (13.0-17.0) g/dL Hct (39.6-50.0) % MCV (80.0-97.0) fL MCH (27.0-32.0) pg MCHC (32.0-37.0) g/dL Plt Count (140-440) 10*3/uL MPV (9.5-12.2) fL Immature Gran % (Auto) % Neutrophils % % Lymphocytes % % Monocytes % % Eosinophils % % Basophils % % Immature Gran # (0.00-0.04) 10*3/uL Neutrophils # (1.80-7.70) 10*3/uL Lymphocytes # (0.90-5.00) 10*3/uL Monocytes # (0.20-1.00) 10*3/uL Eosinophils # (0.04-0.35) 10*3/uL Basophils # (0.00-0.10) 10*3/uL PT (10.0-12.5) sec INR (<1.2) VBG pH (7.31-7.41) VBG pCO2 (37-51) mmHg VBG HCO3 (24-28) mmol/L Sodium (137-145) mmol/L Potassium (3.5-5.1) mmol/L Chloride (98-107) mmol/L Carbon Dioxide (22-30) mmol/L Anion Gap mmol/L BUN (9-20) mg/dL Creatinine (0.66-1.25) mg/dL Est GFR (CKD-EPI)AfAm (>60 ml/min/1.73 sqM) Est GFR (CKD-EPI)NonAf (>60 ml/min/1.73 sqM) Glucose (74-99) mg/dL POC Glucose (mg/dL) (70-110) mg/dL POC Glu Deaf And Hard Of Hearing Teacher ID Calcium (8.4-10.2) mg/dL Phosphorus (2.5-4.5) mg/dL Magnesium (1.6-2.3) mg/dL Total Bilirubin (0.2-1.3) mg/dL AST (17-59) U/L ALT (4-49) U/L Alkaline Phosphatase (38-126) U/L Ammonia 105 H (<30) umol/L Total Protein (6.3-8.2) g/dL Albumin (3.5-5.0) g/dL Lipase (23-300) U/L Urine Color Colorless Urine Appearance Clear (Clear) Urine pH 6.0 (5.0-8.0) Ur Specific [place] 1.019 (1.001-1.035) Urine Protein 1+ H (Negative) Urine Glucose (UA) 4+ H (Negative) Urine Ketones Negative (Negative) Urine Blood Small H (Negative) Urine Nitrite Negative (Negative) Urine Bilirubin Negative (Negative) Urine Urobilinogen <2.0 (<2.0) mg/dL Ur Leukocyte Esterase Negative (Negative) Urine RBC 4 (0-5) /hpf Urine WBC 1 (0-5) /hpf Ur Squamous Epith Cells 1 (0-4) /hpf Amorphous Sediment Rare H (None) /hpf Hyaline Casts 7 H (0-2) /lpf Urine Opiates Screen (NotDetected) Ur Oxycodone Screen (NotDetected) Urine Methadone Screen (NotDetected) Ur Barbiturates Screen (NotDetected) U Tricyclic Antidepress (NotDetected) Ur Phencyclidine Scrn (NotDetected) Ur Amphetamines Screen (NotDetected) U Methamphetamines Scrn (NotDetected) U Benzodiazepines Scrn (NotDetected) Urine Cocaine Screen (NotDetected) U Marijuana (THC) Screen (NotDetected) Serum Alcohol mg/dL Acetone, Qual (Negative) Disposition Is patient prescribed a controlled substance at d/c from ED?: No <Marin Bess - Last Filed: 02/23/25 03:19> <Juana Taylor - Last Filed: 02/23/25 12:38> Clinical Impression: Alcohol withdrawal syndrome, Alcoholic intoxication, Alcohol withdrawal delirium, Hyperammonemia, Hepatic encephalopathy Disposition: ADMITTED IP TO THIS HOSP Condition: Fair
[2025-02-23 00:54] LABS: Amorphous Sediment,Urine Rare /hpf; Appearance,Urine Clear (Clear); Bilirubin,Urine Negative (Negative); Blood,Urine Small (Negative); Color,Urine Colorless; Glucose,Urine (UA) 4+ (Negative); Hyaline Casts,Urine 7 /lpf (0-2); Ketones,Urine Negative (Negative); Leukocyte Esterase,Urine Negative (Negative); Nitrite,Urine Negative (Negative); Protein,Urine 1+ (Negative); RBC,Urine 4 /hpf (0-5); Specific Gravity,Urine 1.019 (1.001-1.035); Squamous Epithelial Cell,Urine 1 /hpf (0-4); Urobilinogen,Urine <2.0 mg/dL (<2.0); WBC,Urine 1 /hpf (0-5)
[2025-02-23 01:05] LABS: Amphetamine Screen,Urine Not Detected (NotDetected); Barbiturate Screen,Urine Not Detected (NotDetected); Benzodiazepines Screen,Urine Not Detected (NotDetected); Cocaine Screen,Urine Detected (NotDetected); Methadone Screen, Urine Not Detected (NotDetected); Opiate Screen,Urine Not Detected (NotDetected); Oxycodone Screen, Urine Not Detected (NotDetected); Phencyclidine Screen,Urine Not Detected (NotDetected); Tricyclic Antidepressant,Urine Not Detected (NotDetected); Urn Cannabinoid Scrn Detected (NotDetected)
[2025-02-23] MEDS: SODIUM CHLORIDE 0.9% 500 ML 500 ML IV ONE (03:00)
[2025-02-23] MEDS ORDERED: LORazepam 2 MG/ML INJ IV PRN ×4 (03:17)
[2025-02-23] MEDS ORDERED: NALOXONE 0.4 MG/ML 1 ML VIAL IV PRN (03:17)
[2025-02-23] MEDS ORDERED: LORazepam 1 MG TAB PO PRN ×3 (03:17)
[2025-02-23] MEDS ORDERED: ONDANSETRON 4 MG/2 ML VIAL IVP PRN (03:17)
[2025-02-23] MEDS ORDERED: LORazepam 0.5 MG TAB PO PRN (03:17)
[2025-02-23] MEDS: LACTULOSE 20 GM/30 ML CUP PO ONE (03:26)
[2025-02-23] MEDS: DEXTROSE 5%-0.45% NACL 1,000 ML IV SCH (03:29)
[2025-02-23 06:14] LABS: Glucose,Whole Blood 333 mg/dL (70-110)
[2025-02-23] MEDS ORDERED: LORazepam 1 MG/0.5 ML VIAL IV PRN ×4 (08:06→08:08)
[2025-02-23 08:07] VITALS: BP 151/70; PULSE 83; RESP 16; TEMP 98.7
[2025-02-23] MEDS: LACTULOSE 20 GM/30 ML CUP PO SCH (09:29)
[2025-02-23 11:01] LABS: Glucose,Whole Blood 353 mg/dL (70-110)
[2025-02-23] MEDS: INSULIN NPH 100 UNIT/ML 10 ML VIAL SQ SCH (11:25)
[2025-02-23] MEDS: ENOXAPARIN 40 MG/0.4 ML SYRINGE SQ SCH (11:25)
[2025-02-23] MEDS: amLODIPine 10 MG TAB PO SCH (11:26)
[2025-02-23] MEDS: ASPIRIN 81 MG PO SCH (11:26)
[2025-02-23] MEDS: lisinopriL 10 MG TAB PO SCH (11:26)
[2025-02-23] MEDS: LEVOTHYROXINE 100 MCG TAB PO SCH (11:26)
[2025-02-23] MEDS ORDERED: GABAPENTIN 300 MG CAP PO SCH (16:00)
[2025-02-23] MEDS ORDERED: INSULIN GLARGINE (LANTUS) 100 UNIT/ML SYR SQ SCH (21:00)
[2025-02-23] MEDS ORDERED: ATORVASTATIN 20 MG TAB PO SCH (21:00)
[2025-02-24] MEDS ORDERED: THIAMINE 100 MG TAB PO SCH (09:00)
== END 2025-02-23 15:20 | disposition home or self-care (01) | DRG 775 ==
LOC: EC 17:53 → 4SSUR 02-23 03:19
PROVIDERS: ADMIT Hospitalist; ATTEND Hospitalist
DX: F10.229 Alcohol dependence with intoxication, unspecified (principal); E11.65 Type 2 diabetes mellitus with hyperglycemia; T68.XXXA Hypothermia, initial encounter; E72.20 Disorder of urea cycle metabolism, unspecified; F10.231 Alcohol dependence with withdrawal delirium; F17.200 Nicotine dependence, unspecified, uncomplicated; F43.10 Post-traumatic stress disorder, unspecified; K76.82 Hepatic encephalopathy; Z79.4 Long term (current) use of insulin; Z79.82 Long term (current) use of aspirin; Z79.890 Hormone replacement therapy; Y90.6 Blood alcohol level of 120-199 mg/100 ml; Z88.5 Allergy status to narcotic agent; X31.XXXA Exposure to excessive natural cold, initial encounter; Z71.41 Alcohol abuse counseling and surveillance of alcoholic
CPT/HCPCS: 36415; 51702; 70450; 72125; 80053; 80306; 80320; 81001; 82009; 82140; 82803; 83690; 83735; 84100; 85025; 85610; 96360; 96361; 96372; 99285